=== PATIENT | male | born 1985 | race Two or more races ===

== ENCOUNTER 2024-06-15 09:26 | Emergency (ER) | payer OTHER ==
[~2024-06-15] VITALS: Ht 175.3 cm; Wt 73.9 kg
[2024-06-15] MEDS ORDERED: KETOROLAC TROMETHAMINE 60 MG VIAL IM ONE (10:00)
[2024-06-15] MEDS ORDERED: LIDOCAINE HCL 1% 10ML VIAL PERCUT ONE (10:00)
[2024-06-15] MEDS ORDERED: CEFTRIAXONE SODIUM 1,000 MG VIAL IM ONE (10:00)
[2024-06-15] MEDS ORDERED: PEPCID AC20 MG PO (10:13)
[2024-06-15] MEDS ORDERED: KETO10TA2 PO (10:13)
[2024-06-15] MEDS ORDERED: CEPHALEXIN750 MG PO (10:13)
== END 2024-06-15 10:24 | disposition home or self-care (01) ==
LOC: ER 09:28
DX: S61.511A Laceration without foreign body of right wrist, initial encounter (principal); W25.XXXA Contact with sharp glass, initial encounter; Y93.G1 Activity, food preparation and clean up; Y92.89 Other specified places as the place of occurrence of the external cause; Y99.9 Unspecified external cause status

== ENCOUNTER 2024-06-23 09:29 | Emergency (ER) | payer OTHER ==
[~2024-06-23] VITALS: Ht 175.3 cm; Wt 73.9 kg
[~2024-06-23 09:29] MED LIST: CEPHALEXIN750 MG PO; KETO10TA2 PO; PEPCID AC20 MG PO
[2024-06-23 09:35] VITALS: BP 109/71; O2SAT 97
== END 2024-06-23 10:09 | disposition home or self-care (01) ==
LOC: ER 09:31
DX: Z48.02 Encounter for removal of sutures (principal)

== ENCOUNTER 2024-12-15 11:47 | Outpatient (CLI) | payer OTHER | END 2024-12-15 13:12 | disposition home or self-care (01) | LOC: RAD 11:47 | DX: M16.0 Bilateral primary osteoarthritis of hip (principal); M51.379 Other intervertebral disc degeneration, lumbosacral region without mention of lumbar back pain or lower extremity pain; M47.817 Spondylosis without myelopathy or radiculopathy, lumbosacral region; M51.27 Other intervertebral disc displacement, lumbosacral region; M54.17 Radiculopathy, lumbosacral region ==